=== PATIENT | male | born 1980 | race Caucasian/White ===

== ENCOUNTER 2020-05-16 10:02 | Emergency (ER) | payer OTHER ==
[~2020-05-16] VITALS: Ht 175.3 cm; Wt 113.4 kg
[2020-05-16] MEDS ORDERED: KETO10TA2 PO (14:40)
== END 2020-05-16 14:47 | disposition home or self-care (01) ==
LOC: ER 10:02
DX: M25.561 Pain in right knee (principal)

== ENCOUNTER 2020-06-20 22:32 | Emergency (ER) | payer OTHER ==
[~2020-06-20] VITALS: Ht 177.8 cm; Wt 118.8 kg
[~2020-06-20 22:32] MED LIST: KETO10TA2 PO
[2020-06-20] MEDS ORDERED: DEPAKOTE ER500 MG (22:51)
[2020-06-20] MEDS ORDERED: THORAZINE25 MG (22:53)
== END 2020-06-21 18:07 | disposition designated cancer center or children's hospital (05) ==
LOC: ER 22:32
DX: R45.851 Suicidal ideations (principal); F25.0 Schizoaffective disorder, bipolar type; Z03.818 Encounter for observation for suspected exposure to other biological agents ruled out